=== PATIENT | female | born 1960 | race Caucasian/White ===

== ENCOUNTER 2016-08-13 01:11 | Emergency (ER) | payer OTHER ==
[2016-08-13 06:25] VITALS: BP 120/70
== END 2016-08-13 06:05 | disposition home or self-care (01) ==
LOC: ED 01:11
DX: S05.12XA Contusion of eyeball and orbital tissues, left eye, initial encounter (principal); M54.2 Cervicalgia; R53.83 Other fatigue; Z88.0 Allergy status to penicillin; W18.09XA Striking against other object with subsequent fall, initial encounter; Y93.84 Activity, sleeping; Y92.89 Other specified places as the place of occurrence of the external cause; Y99.8 Other external cause status